=== PATIENT | female | born 1945 | race African-American/Black ===

== ENCOUNTER → 2016-12-29 | Outpatient (CLI) | payer OTHER ==
--- NOTE | 2016-12-29 14:17 | PCVCIMAG ---
APPROVED REPORT Study performed: 12/29/2016 13:13:05 EXAM: Comprehensive 2D, Doppler, and color-flow Echocardiogram Other Information Study Quality: Good Risk Factors: Cardiac Risk Factors: HTN, SOB Indications Congestive Heart Failure Dyspnea 2D Dimensions LVEF(%): 66.03 (>50%) IVSd: 13.06 (7-11mm) LVDd: 42.34 mm PWd: 12.11 (7-11mm) LVDs: 27.08 (25-40mm) Left Atrium: 44.92 (27-40mm) Aortic Root: 31.12 mm LV Single Plane 4CH: 58.49 % LV Single Plane 2CH: 57.38 %Howlel's LVEF: 57.94 % Biplane EF: 58.2 % Volumes Left Atrial Volume (Systole) Single Plane 4CH: 60.36 mLSingle Plane 2CH: 59.00 mL LA ESV Index: 32.00 mL/m2 Aortic Valve AoV Peak Neto.: 1.69 m/s AO Peak Gr.: 11.46 mmHgLVOT Max P.72 mmHg LVOT Max V: 1.20 m/s Mitral Valve E/A Ratio: 0.6 MV Decel. Time: 285.14 ms MV E Max Neto.: 0.66 m/s MV A Neto.: 1.15 m/s MV PHT: 82.69 ms IVRT: 79.58 ms TDI E/Lateral E': 31.00E/Medial E': 21.00 Pulmonary Valve PV Peak Neto.: 1.06 m/sPV Peak Gr.: 4.47 mmHg Pulmonary Vein P Vein S: 0.33 m/sP Vein A: 0.38 m/s P Vein D: 0.31 m/sP Vein A Dur.: 128.0 msec P Vein S/D Ratio: 1.06 Tricuspid Valve TR Peak Neto.: 2.51 m/s TR Peak Gr.: 25.29 mmHg Left Ventricle The left ventricle is normal size. There is normal LV segmental wall motion. Mild concentric left ventricular hypertrophy. Left ventricular systolic function is normal. The left ventricular ejection fraction is within the normal range. LVEF is 55-60%. Grade I - abnormal relaxation pattern. Right Ventricle The right ventricle is normal size. The right ventricular systolic function is normal. Atria The left atrium size is normal. The right atrium size is normal. Aortic Valve The aortic valve is normal in structure. No aortic regurgitation is present. There is no aortic valvular stenosis. Mitral Valve The mitral valve is normal in structure. There is no mitral valve regurgitation noted. No evidence of mitral valve stenosis. Tricuspid Valve The tricuspid valve is normal in structure. Mild tricuspid regurgitation with PAP of 32 mmHg. Pulmonic Valve The pulmonary valve is normal in structure. There is no pulmonic valvular regurgitation. Great Vessels The aortic root is normal in size. IVC is normal in size and collapses with >50% inspiration Pericardium Trace pericardial effusion, no tamponade physiology and no hemodynamic changes present. <Conclusion> The left ventricle is normal size. Mild concentric left ventricular hypertrophy. Left ventricular systolic function is normal. Grade I - abnormal relaxation pattern. The right ventricle is normal size. The left atrium size is normal. The right atrium size is normal. The aortic valve is normal in structure. The mitral valve is normal in structure. Mild tricuspid regurgitation with PAP of 32 mmHg. Trace pericardial effusion, no tamponade physiology and no hemodynamic changes present.
== END | disposition home or self-care (01) ==
LOC: PCVCIMAG 13:06
PROVIDERS: ATTEND Internal Medicine Cardiovascular Disease
DX: I07.1 Rheumatic tricuspid insufficiency (principal); I11.0 Hypertensive heart disease with heart failure; I50.9 Heart failure, unspecified; I73.9 Peripheral vascular disease, unspecified; I65.23 Occlusion and stenosis of bilateral carotid arteries; Z88.0 Allergy status to penicillin; Z87.891 Personal history of nicotine dependence; Z79.82 Long term (current) use of aspirin; Z95.828 Presence of other vascular implants and grafts
CPT/HCPCS: 93005; 93306; G0463

== ENCOUNTER → 2017-01-24 | Outpatient (CLI) | payer OTHER ==
--- NOTE | 2017-01-24 15:12 | PCVCIMAG ---
EXAM: AORTOILIAC DUPLEX INDICATION: Peripheral arterial disease FINDINGS: AORTA: Suprarenal aorta measures maximum diameter of 2.9 cm. There is not a fusiform infrarenal aortic aneurysm. The infrarenal aorta measures maximum diameter of 2.1 cm. No aortic stenosis. RIGHT COMMON ILIAC ARTERY: Maximum diameter is 1.4 cm. No significant stenosis. RIGHT EXTERNAL ILIAC ARTERY: No significant stenosis. LEFT COMMON ILIAC ARTERY: Maximum diameter is 1.3 cm. No significant stenosis. LEFT EXTERNAL ILIAC ARTERY: No significant stenosis. IMPRESSION: No abdominal aortic aneurysm. No aortoiliac stenosis seen. Previous bilateral iliac stents maintaining satisfactory patency. LOC:[id number]
--- NOTE | 2017-01-24 15:22 | PCVCIMAG ---
EXAM: BILATERAL LOWER EXTREMITY ARTERIAL DUPLEX INDICATION: Peripheral Arterial Disease. Leg pain. FINDINGS: Right Leg: Satisfactory arterial waveforms in the common femoral and profunda femoral artery. Elevated systolic velocity in the mid/distal superficial femoral artery of 295 cm/s consistent with 70% stenosis. The popliteal artery is patent. The anterior tibial, peroneal, and posterior tibial arteries are patent. Left Leg: Satisfactory arterial waveforms in the common femoral and profunda femoral artery. Elevated systolic velocity distal superficial femoral artery of 322 cm/s consistent with 80% stenosis. Moderate velocity elevation upper popliteal artery consistent with 60-70% stenosis. The anterior tibial, peroneal, and posterior tibial arteries are patent. IMPRESSION: 70% stenosis mid/distal right superficial femoral artery. 80% stenosis distal left superficial femoral artery. Unchanged 60-70% stenosis mid/upper left popliteal artery. LOC:[id number]
--- NOTE | 2017-01-24 15:52 | PCVCIMAG ---
EXAM: NONINVASIVE ARTERIAL EXAMINATION OF BOTH LOWER EXTREMITIES INCLUDING PRE AND POST EXERCISE PRESSURE MEASUREMENTS AND DOPPLER WAVEFORMS INDICATION: Peripheral Arterial Disease. Leg pain. FINDINGS: Right Brachial: 194 mm Hg. Right Dorsalis Pedis: 160 mm Hg. Right Posterior Tibial: 169 mm Hg. Right APOLLO = 0.87. Left Brachial: 181 mm Hg. Left Dorsalis Pedis: 161 mm Hg. Left Posterior Tibial: 152 mm Hg. Left APOLLO = 0.83. Post Exercise: Right Brachial 204 mm Hg. Right Posterior Tibial: 140 mm Hg. Left Dorsalis Pedis: 144 mm Hg. Right APOLLO = 0.69. Left APOLLO = 0.71. IMPRESSION: No resting ischemia in the right lower extremity. Mild exercise induced ischemia in the right lower extremity. Mild resting ischemia in the left lower extremity. Mild exercise induced ischemia in the left lower extremity. LOC:[id number]
== END | disposition home or self-care (01) ==
LOC: PCVCIMAG 13:21
PROVIDERS: ATTEND Nuclear Medicine Nuclear Cardiology
DX: I70.202 Unspecified atherosclerosis of native arteries of extremities, left leg (principal); I70.291 Other atherosclerosis of native arteries of extremities, right leg; I11.0 Hypertensive heart disease with heart failure; I77.89 Other specified disorders of arteries and arterioles; I50.30 Unspecified diastolic (congestive) heart failure; E04.1 Nontoxic single thyroid nodule; Z95.828 Presence of other vascular implants and grafts; Z87.891 Personal history of nicotine dependence; Z88.0 Allergy status to penicillin; Z79.82 Long term (current) use of aspirin
CPT/HCPCS: 93923; 93925; 93978; G0463; 93924

== ENCOUNTER → 2017-08-17 | Outpatient (CLI) | payer OTHER | END | disposition home or self-care (01) | LOC: PCVCCLINIC 13:00 | DX: I10 Essential (primary) hypertension (principal); I73.9 Peripheral vascular disease, unspecified; R06.00 Dyspnea, unspecified; R60.9 Edema, unspecified; Z88.0 Allergy status to penicillin; Z79.82 Long term (current) use of aspirin; Z79.899 Other long term (current) drug therapy; Z87.891 Personal history of nicotine dependence | CPT/HCPCS: 93005; G0463 ==

== ENCOUNTER → 2018-03-21 | Outpatient (CLI) | payer OTHER | END | disposition home or self-care (01) | LOC: PCVCCLINIC 15:47 | PROVIDERS: ATTEND Nuclear Medicine Nuclear Cardiology | DX: I73.9 Peripheral vascular disease, unspecified (principal); I77.9 Disorder of arteries and arterioles, unspecified; I11.0 Hypertensive heart disease with heart failure; I50.30 Unspecified diastolic (congestive) heart failure; E04.1 Nontoxic single thyroid nodule; F10.10 Alcohol abuse, uncomplicated; Z88.0 Allergy status to penicillin; Z87.891 Personal history of nicotine dependence | CPT/HCPCS: G0463 ==

== ENCOUNTER → 2018-05-30 | Outpatient (CLI) | payer OTHER | END | disposition home or self-care (01) | LOC: PCVCCLINIC 15:00 | PROVIDERS: ATTEND Internal Medicine Cardiovascular Disease | DX: I11.0 Hypertensive heart disease with heart failure (principal); I50.9 Heart failure, unspecified; R94.31 Abnormal electrocardiogram [ECG] [EKG]; R60.9 Edema, unspecified; I73.9 Peripheral vascular disease, unspecified; Z88.0 Allergy status to penicillin; Z79.82 Long term (current) use of aspirin; Z87.891 Personal history of nicotine dependence; Z72.89 Other problems related to lifestyle | CPT/HCPCS: 93005; G0463 ==

== ENCOUNTER → 2018-11-28 | Outpatient (CLI) | payer OTHER | END | disposition home or self-care (01) | LOC: PCVCCLINIC 14:00 | PROVIDERS: ATTEND Internal Medicine Cardiovascular Disease | DX: I11.0 Hypertensive heart disease with heart failure (principal); I50.9 Heart failure, unspecified; R60.9 Edema, unspecified; E78.00 Pure hypercholesterolemia, unspecified; Z88.0 Allergy status to penicillin; Z79.82 Long term (current) use of aspirin; Z87.891 Personal history of nicotine dependence | CPT/HCPCS: 36415; 80061; 93005; G0463 ==

== ENCOUNTER → 2018-12-20 | Outpatient (CLI) | payer OTHER ==
--- NOTE | 2018-12-20 14:04 | PCVCIMAG ---
EXAM: BILATERAL CAROTID DUPLEX INDICATION: Carotid Occlusive Disease. FINDINGS: Doppler Measurements (centimeters per second): RIGHT: Peak CCA-81, Peak ECA-85, Diastolic ICA-22, Peak ICA-64, ICA/CCA Ratio-0.8. LEFT: Peak CCA-55, Peak ECA-160, Diastolic ICA-26, Peak ICA-89, ICA/CCA Ratio-1.3. RIGHT CAROTID: The carotid bulb has mild plaque. The proximal internal carotid artery shows <40% stenosis. The common carotid artery shows no significant stenosis. The external carotid artery shows no significant stenosis. LEFT CAROTID: The carotid bulb has moderate plaque. The proximal internal carotid artery shows <40% stenosis. The common carotid artery shows no significant stenosis. The external carotid artery shows 50% stenosis. Antegrade flow in both vertebral arteries. IMPRESSION: <40% stenosis of the right internal carotid artery with mild plaque. <40% stenosis of the left internal carotid artery with moderate plaque. LOC:[place] [id number]
--- NOTE | 2018-12-20 16:57 | PCVCIMAG ---
EXAM: AORTOILIAC DUPLEX INDICATION: Peripheral arterial disease. Previous bilateral iliac stents. FINDINGS: AORTA: Suprarenal aorta measures maximum diameter of 2.8 cm. There is not a fusiform infrarenal aortic aneurysm. The infrarenal aorta measures maximum diameter of 1.5 cm. No aortic stenosis. RIGHT COMMON ILIAC ARTERY: Maximum diameter is 0.9 cm. No significant stenosis. RIGHT EXTERNAL ILIAC ARTERY: No significant stenosis. LEFT COMMON ILIAC ARTERY: Maximum diameter is 1.1 cm. No significant stenosis. LEFT EXTERNAL ILIAC ARTERY: No significant stenosis. IMPRESSION: No abdominal aortic aneurysm. No aortoiliac stenosis seen. Previous bilateral iliac stents maintaining satisfactory patency. Incidental note is made of a 3.0 x 4.2 x 5.2 cm hypoechoic sharply marginated lesion in the left hepatic lobe. This does not meet all the criteria for a definite benign cyst and if this is a new finding further evaluation with MRI examination or CT examination is suggested. LOC:[place] [id number]
--- NOTE | 2018-12-20 17:02 | PCVCIMAG ---
EXAM: BILATERAL LOWER EXTREMITY ARTERIAL DUPLEX INDICATION: Peripheral Arterial Disease. Leg pain. FINDINGS: Right Leg: Common femoral and profunda femoral arteries are patent. Increased systolic velocity 232 cm/s mid/distal [place] superficial femoral artery consistent with 40-50% stenosis is unchanged. Popliteal artery is patent. Peroneal artery is not well seen. The anterior tibial and posterior tibial arteries are patent. Left Leg: Common femoral and profunda femoral arteries are patent. Increased systolic velocity 317 cm/s distal [place] superficial femoral artery consistent with 70-80% stenosis. 60% stenosis mid/distal [place] popliteal artery. The anterior tibial, peroneal, and posterior tibial arteries are patent. IMPRESSION: 40-50% stenosis mid/distal [place] right superficial femoral artery is unchanged since March 2018. 70-80% stenosis distal [place] left superficial femoral artery is unchanged since March 2018 study. 80% stenosis mid/distal [place] left popliteal artery also unchanged. LOC:[id number]
== END | disposition home or self-care (01) ==
LOC: PCVCIMAG 13:23
PROVIDERS: ATTEND Nuclear Medicine Nuclear Cardiology
DX: I65.23 Occlusion and stenosis of bilateral carotid arteries (principal); I73.9 Peripheral vascular disease, unspecified; Z87.891 Personal history of nicotine dependence; Z88.0 Allergy status to penicillin
CPT/HCPCS: 93880; 93925; 93978

== ENCOUNTER → 2018-12-28 | Outpatient (CLI) | payer OTHER | END | disposition home or self-care (01) | LOC: PCVCCLINIC 15:00 | PROVIDERS: ATTEND Nuclear Medicine Nuclear Cardiology | DX: I73.9 Peripheral vascular disease, unspecified (principal); I77.9 Disorder of arteries and arterioles, unspecified; I11.0 Hypertensive heart disease with heart failure; I50.9 Heart failure, unspecified; E04.1 Nontoxic single thyroid nodule; Z88.0 Allergy status to penicillin; Z87.891 Personal history of nicotine dependence; Z79.82 Long term (current) use of aspirin | CPT/HCPCS: G0463 ==

== ENCOUNTER → 2019-06-15 | Outpatient (CLI) | payer OTHER | END | disposition home or self-care (01) | LOC: PCVCCLINIC 14:20 | PROVIDERS: ATTEND Internal Medicine Cardiovascular Disease | DX: I11.0 Hypertensive heart disease with heart failure (principal); I50.32 Chronic diastolic (congestive) heart failure; R60.9 Edema, unspecified; E78.00 Pure hypercholesterolemia, unspecified; Z88.0 Allergy status to penicillin; Z79.82 Long term (current) use of aspirin; Z79.899 Other long term (current) drug therapy; Z87.891 Personal history of nicotine dependence | CPT/HCPCS: 93005; G0463 ==